=== PATIENT | female | born 1990 | race Caucasian/White ===

== ENCOUNTER 2018-03-21 07:47 | Emergency (ER) | payer BC ==
[2018-03-21] MEDS: IBUPROFEN 600 MG TAB PO (08:04)
[2018-03-21] MEDS: HYDROCODONE/APAP (5/325) TAB PO (08:42)
== END 2018-03-21 08:45 | disposition home or self-care (01) ==
LOC: FTE 07:47
DX: S92.421A Displaced fracture of distal phalanx of right great toe, initial encounter for closed fracture (principal); X58.XXXA Exposure to other specified factors, initial encounter; Y92.322 Soccer field as the place of occurrence of the external cause
CPT/HCPCS: 73660; 99283-25

== ENCOUNTER 2018-06-04 17:51 | Emergency (ER) | payer BC ==
[2018-06-04 20:15] LABS: URINE PH (Dip) POC 6.5 (5.0-8.5)
[2018-06-04 20:15] LABS: URINE BLOOD (Dip) POC Trace-intact (NEGATIVE); URINE GLUCOSE (Dip) POC Negative (NEGATIVE); URINE KETONES (Dip) POC Negative (NEGATIVE); URINE LEUKOCYTE EST (Dip) POC Negative (NEGATIVE); URINE NITRITE (Dip) POC Negative (NEGATIVE); URINE TOTAL PROTEIN POC Negative (NEGATIVE)
== END 2018-06-04 20:33 | disposition home or self-care (01) ==
LOC: FTE 17:51
DX: L73.9 Follicular disorder, unspecified (principal)
CPT/HCPCS: 81003; 87086; 99283